=== PATIENT | female | born 1975 | race African-American/Black ===

== ENCOUNTER 2021-02-10 20:24 | Emergency (ER) | payer MEDICAID, SELFPAY ==
[2021-02-10 22:00] LABS: #Basophils 0.1 10x3/uL (0.0-0.2); #Eosinphils 0.2 10x3/uL (0.0-0.5); #Monocytes 0.5 10x3/uL (0.0-1.1); #Neutrophils 4.4 10x3/uL (1.5-8.4); %Basophils 0.7 % (0.0-2.0); %Lymphocytes 39.8 % (18.0-47.0); %Neutrophils 51.3 % (40.0-75.0); Hemoglobin 14.2 g/dL (12.0-15.5); Mean Corpuscular HGB CONC 33.2 g/dL (32.0-36.0); Mean Corpuscular Hemoglobin 26.8 pg (27.0-33.0); Mean Corpuscular Volume 80.8 fl (81.6-98.3); Mean Platelet Volume 11.3 fl (7.4-10.4); Platelet Count 226 10x3/uL (150-450); RBC Distribution Width 13.5 % (11.5-14.5); White Blood Cell (WBC) Count 8.6 10x3/uL (3.5-10.5)
[2021-02-10 22:06] LABS: ALT (SGPT) 13 U/L (8-55); AST (SGOT) 23 U/L (5-34); Alkaline Phosphatase 94 U/L (40-110); Anion Gap 13 mmol/L (10-20); BUN (Urea Nitrogen) 11 mg/dL (7.0-18.7); Bilirubin, Total 0.3 mg/dL (0.2-1.2); Calc. Creatinine Clearance 0 mL/min (70-130); Calcium 9.1 mg/dL (7.8-10.44); Carbon Dioxide 24 mmol/L (22-29); Chloride 104 mmol/L (98-107); Globulin 3.9 g/dL (2.4-3.5); Glucose 112 mg/dL (70-105); Potassium 3.4 mmol/L (3.5-5.1); Protein, Total 7.9 g/dL (6.0-8.3); Sodium 138 mmol/L (136-145)
[2021-02-10] MEDS ORDERED: Amlodipine 5 MG TAB ONE (23:40)
[2021-02-10] MEDS ORDERED: Chlorthalidone 25 MG TAB PO SCH (23:45)
[2021-02-10] MEDS ORDERED: Losartan Potassium 50 MG TAB PO SCH (23:45)
== END 2021-02-11 | disposition home or self-care (01) ==
LOC: CSHERS 20:24
DX: M79.662 Pain in left lower leg (principal); I10 Essential (primary) hypertension; E11.9 Type 2 diabetes mellitus without complications; Z79.899 Other long term (current) drug therapy
CPT/HCPCS: 80053; 83880; 84484; 85025; 93005

== ENCOUNTER 2023-12-17 10:20 | Emergency (ER) | payer BC, SELFPAY ==
[2023-12-17] MEDS ORDERED: Ibuprofen 200 MG TAB ONE (11:02)
[2023-12-17] MEDS ORDERED: Acetaminophen 500 MG TAB ONE (11:02)
[2023-12-17 11:52] LABS: SARS-CoV-2 NAA Rapid Test DETECTED (NotDetected)
== END 2023-12-17 12:18 | disposition home or self-care (01) ==
LOC: CSHERS 10:20
DX: U07.1 COVID-19 (principal); E11.9 Type 2 diabetes mellitus without complications; I10 Essential (primary) hypertension; Z79.899 Other long term (current) drug therapy
CPT/HCPCS: 99283